=== PATIENT | female | born 1985 | race Caucasian/White ===

== ENCOUNTER → 2018-02-08 14:12 | Outpatient (CLI) | payer MEDICAID, SELFPAY ==
[2018-02-15 12:15] LABS: HPV Reflexed? NOT INDICATED
== END ==
PROVIDERS: Visit Provider Obstetrics & Gynecology
DX: Z12.4 Encounter for screening for malignant neoplasm of cervix (principal)
CPT/HCPCS: 88175; G0145

== ENCOUNTER → 2018-10-17 | Outpatient (CLI) | payer MEDICAID, SELFPAY ==
[2014-10-23 11:01] VITALS: BMI 34.7
[2018-10-17 20:29] LABS: Chlamydia Trachomatis by PCR Negative (Negative); Neisserai gonorrhoeae by PCR Negative (Negative); Probe Check PASS; Sample Adequacy Control PASS; Specimen Processing Control PASS
== END | disposition home or self-care (01) ==
LOC: LABSPEC 17:04
PROVIDERS: Visit Provider Obstetrics & Gynecology
DX: Z12.4 Encounter for screening for malignant neoplasm of cervix (principal); Z11.3 Encounter for screening for infections with a predominantly sexual mode of transmission
CPT/HCPCS: 87491; 87591

== ENCOUNTER → 2018-11-02 | Outpatient (CLI) | payer MEDICAID, SELFPAY ==
[2014-10-23 11:01] VITALS: BMI 34.7
[2018-11-02 15:53] LABS: Color, Urine Yellow (Yellow); Glucose, Dipstick Normal (Normal); Ketone-Dipstick Negative (Negative); Leukocyte Esterase-Dipstick Negative /ul (Negative); Nitrite-Dipstick Negative (Negative); Occult Blood-Urine 25 /ul (Negative); Protein-Dipstick Negative (Negative); Specific Gravity, Urine 1.015 (1.002-1.030); Urine Bilirubin Dipstick Negative (Negative); Urine Clarity Clear (Clear); Urine Urobilinogen Normal (Normal); Urine pH 6.5 (5.0 - 8.0)
[2018-11-02 15:59] LABS: Amphetamine Urine VISTA NEGATIVE (<1000 ng/mL); Barbiturate Urine VISTA NEGATIVE (< 200 ng/mL); Benzodiazepine Urine VISTA NEGATIVE (< 200 ng/mL); Cocaine Urine VISTA NEGATIVE (< 300 ng/mL); Ecstacy Urine VISTA NEGATIVE (< 500 ng/mL); Methadone Urine VISTA NEGATIVE (< 300 ng/mL); PCP Urine VISTA NEGATIVE (< 25 ng/mL); THC Urine VISTA POSITIVE (< 50 ng/mL); Vista UDS pH Range 6
[2018-11-02 17:16] LABS: Absolute Lymphocyte Count 3.36 X10^3/ul (0.83-4.51); Absolute Neutrophil Count 6.8 X10^3/uL (2.0-7.7); Basophil# 0.03 X10^3/uL; Basophil% 0.3 % (0-1); Eosinophil# 0.08 X10^3/uL; Eosinophils% 0.7 % (0-5); Hematocrit 36.1 % (37-47); Hemoglobin 11.7 g/dl (12.0-15.0); Lymphocyte # 3.36 X10^3/ul (4.0); Mean Corp Hgb Conc 32.4 g/gl (32-36); Mean Corpuscular Hgb 28.7 pg (27.0-32.0); Mean Corpuscular Volume 88.7 fL (81-99); Mean Platelet Vol. 8.8 fl (6.2-12.0); Monocyte# 0.57 X10^3/uL; Monocyte% 5.3 % (0-10); Neutrophil # 6.76 X10^3/uL (2.7-7.7); Neutrophil % 62.4 % (47-70); Platelet Count 420 K/mm3 (150-450); RBC Distribution Width CV 13.1 % (11.6-14.6); RBC Distribution Width SD 41.9 fl (35.1-43.9); Red Blood Count 4.07 M/mm3 (4.2-5.4); White Blood Count 10.8 K/mm3 (4.4-11.0)
[2018-11-02 17:19] LABS: POSITIVE COUNT NO; POSITIVE DIFFERENTIAL NO; POSITIVE MORPHOLOGY NO
[2018-11-02 17:31] LABS: Thyroid Stim Hormone (TSH) 0.93 uIU/mL (0.358-3.74)
[2018-11-02 18:11] LABS: HIV - WCH Non-Reactive (Nonreactive); Rubella IgG 42.5 IU/mL
[2018-11-03 01:45] LABS: Prenatal RPR NONREACTIVE (NONREACTIVE)
[2018-11-06 11:36] LABS: HEPATITIS B SURFACE AG Negative (Negative); Hep C Antibodies <0.1 s/co ratio (0.0-0.9)
== END | disposition home or self-care (01) ==
LOC: WOBLAB 14:23
PROVIDERS: Visit Provider Obstetrics & Gynecology
DX: Z34.81 Encounter for supervision of other normal pregnancy, first trimester (principal)
CPT/HCPCS: 36415; 80307; 81002; 84443; 85025; 86703; 86762; 86803; 87340

== ENCOUNTER → 2019-03-05 15:54 | Outpatient (CLI) | payer MEDICAID, SELFPAY ==
[2014-10-23 11:01] VITALS: BMI 34.7
[2019-03-05 17:33] LABS: Hematocrit 31.6 % (37-47); Hemoglobin 10.3 g/dL (12.0-15.0); Mean Corp Hgb Conc 32.6 g/dL (32-36); Mean Corpuscular Hgb 28.8 pg (27.0-32.0); Mean Corpuscular Volume 88.3 fL (81-99); Mean Platelet Vol. 8.9 fl (6.2-12.0); Platelet Count 496 K/mm3 (150-450); RBC Distribution Width SD 42.2 fl (35.1-43.9); Red Blood Count 3.58 M/mm3 (4.2-5.4); White Blood Count 13.9 K/mm3 (4.4-11.0)
[2019-03-05 17:41] LABS: Glucose Challenge Gest 1H 50g 102 mg/dL (70-140)
[2019-03-05 17:51] LABS: Amphetamine Urine VISTA NEGATIVE (<1000 ng/mL); Barbiturate Urine VISTA NEGATIVE (< 200 ng/mL); Benzodiazepine Urine VISTA NEGATIVE (< 200 ng/mL); Cocaine Urine VISTA NEGATIVE (< 300 ng/mL); Ecstacy Urine VISTA NEGATIVE (< 500 ng/mL); Methadone Urine VISTA NEGATIVE (< 300 ng/mL); PCP Urine VISTA NEGATIVE (< 25 ng/mL); THC Urine VISTA POSITIVE (< 50 ng/mL); Vista UDS pH Range 6
== END ==
PROVIDERS: Visit Provider Obstetrics & Gynecology
DX: Z34.83 Encounter for supervision of other normal pregnancy, third trimester (principal)
CPT/HCPCS: 36415; 80307; 82950; 85027; 86850

== ENCOUNTER → 2019-04-30 15:36 | Outpatient (CLI) | payer MEDICAID, SELFPAY ==
[2014-10-23 11:01] VITALS: BMI 34.7
== END ==
PROVIDERS: Visit Provider Obstetrics & Gynecology
DX: Z36.85 Encounter for antenatal screening for Streptococcus B (principal)
CPT/HCPCS: 87081

== ENCOUNTER 2019-05-14 20:43 | Outpatient (CLI) | payer MEDICAID, SELFPAY ==
[2014-10-23 11:01] VITALS: BMI 34.7
[2019-05-14 21:21] VITALS: BMI 39.1
--- NOTE | 2019-05-15 21:53 | OB.TRI.PN ---
Progress Notes Date of Service: 05/14/19 Progress Note: Reports to triage with lower abdominal pain which wraps around her back with pelvic pressure. Desires to be checked for labor. On monitor for >80 minutes with no contractions seen. FHR baseline 140, + accels, - decels, moderate variability, Category 1. Pain went away after being in triage. Educated on remaining hydrated, Tylenol as needed, and maternity belt for support. To keep appointment in the office tomorrow. To call with increased vaginal pressure, regular UC, decreased FM, bleeding, or ROM.
== END 2019-05-14 22:25 | disposition home or self-care (01) ==
LOC: WPOUT 21:14 → WP 21:14
PROVIDERS: Referring Provider Obstetrics & Gynecology; Visit Provider Obstetrics & Gynecology
DX: O26.899 Other specified pregnancy related conditions, unspecified trimester (principal); R10.30 Lower abdominal pain, unspecified; M54.9 Dorsalgia, unspecified; Z3A.00 Weeks of gestation of pregnancy not specified
CPT/HCPCS: 59025; 59050; 99218; G0378

== ENCOUNTER 2019-05-18 06:45 | Inpatient (IN) | payer MEDICAID, SELFPAY ==
[2014-10-23 11:01] VITALS: BMI 34.7
[2019-05-18 07:23] VITALS: BMI 39.0
--- NOTE | 2019-05-18 07:32 | HP.PCM_ITS ---
History and Physical Date of Admission: 05/18/19 OB HISTORY AND PHYSICAL EXAMINATION History of this : 33 yo female Ab0 with EDC 05/25/2019 by Ultrasound, presents to Labor and Delivery for elective induction of labor at 39 wks. care remarkable for - A NEG, Rubella Immune. GBS negative. 1.) Smokes 5 cigs per day, ATQ 2.) Active marijuana use 3.) FOB had loss of one child at 15 month d/t Grade 4 brain bleed 4.) FOB has a 1st cousin with Muscular Dystrophy - distant and not likely to impact this 5.) A Negative 6.) Rapid second stage with first delivery : SURGICAL HISTORY: 1. 10/23/2014 SHUKRI Aguilera M.D. MENSTRUAL HISTORY: LMP Known?- Approximate-Month KnownAmount/Duration - 4-5, Regularity - Regular, Frequency - monthly days, LMP - 08/18/18, Age Onset Menarche - 15 PAST PREGNANCIES: Total Pregnancies - 3; Full Term Pregnancies - 2; Premature - 0; Abortions, Induced - 0; Abortions, Spontaneous - 0; Ectopics - 0; Multiple Births - 0; Living Children - 2 FAMILY HISTORY: Maternal Grandparent - Type 2 Diabetes; SOCIAL HISTORY: Alcohol Use - denies drinking Smoking - Quit smoking Diet - moderate, balanced diet Lifestyle - moderate stress lifestyle and single Exercise - regular Seat Belt Use - most of the time Employer - [employer] 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 Illicit Drug Use - denies use of street drugs Sexual Activity - single sexual partner Residence - owns a home Place of - [place], [place] Hours Worked - 40 Spouse-Sig Other Name - ESCOBAR- Jaswinder Jurado Spouse-Sig Other Occupation - [employer] Spouse-Sig Other Phone No - [phone] Children Name(s) - Abhijitellie (EB), Deon (EB) Control - Allergies: Shellfish Derived Medications: During - vits no.130-ferrous fum 27 mg iron-folic acid 800 mcg tablet; Pepcid 20 mg tablet; Zofran 4 mg tablet; Claritin-D 12 Hour 5 mg-120 mg tablet,extended release Review of Systems: Non-contributory PHYSICAL EXAMINATION General Appearance: 33 yo female in no acute distress Vital Signs: AF, VSS Lungs: regular rate and rhythm. Breasts: deferred Abdomen: gravid Cervix: cephalic Size: AGA Movement: present Heart: 130 with accels. Irregular UCs. Impression /Plan: Intrauterine . 39 wk elective induction of labor. Admit. Plan amniotomy, Pitocin per protocol.
[2019-05-18] MEDS: Lactated Ringers 1,000 ML 50 ML IV (07:35)
[2019-05-18 07:50] LABS: Absolute Lymphocyte Count 3.24 X10^3/uL (0.83-4.51); Absolute Neutrophil Count 6.5 X10^3/uL (2.0-7.7); Basophil# 0.03 X10^3/uL; Basophil% 0.3 % (0-1); Eosinophil# 0.13 X10^3/uL; Eosinophils% 1.2 % (0-5); Hematocrit 30.5 % (37-47); Hemoglobin 9.7 g/dL (12.0-15.0); Lymphocyte # 3.24 X10^3/ul (4.0); Lymphocyte % 30.8 % (19-41); Mean Corp Hgb Conc 31.8 g/dL (32-36); Mean Corpuscular Hgb 27.2 pg (27.0-32.0); Mean Corpuscular Volume 85.7 fL (81-99); Mean Platelet Vol. 8.9 fl (6.2-12.0); Monocyte# 0.55 X10^3/uL; Monocyte% 5.2 % (0-10); NRBC Flagged by Analyzer 0 % (0-5); Neutrophil % 61.8 % (47-70); Platelet Count 372 K/mm3 (150-450); RBC Distribution Width CV 14.7 % (11.6-14.6); RBC Distribution Width SD 45.9 fl (35.1-43.9); Red Blood Count 3.56 M/mm3 (4.2-5.4); White Blood Count 10.5 K/mm3 (4.4-11.0)
[2019-05-18] MEDS: Oxytocin 30 units/NS 500 ml 30 UNITS/500 ML IV.SOLN IV (07:52)
[2019-05-18] MEDS: Lactated Ringers 500 ML 999 ML IV (10:36)
[2019-05-18] MEDS: fentaNYL-bupivacaine (epidural) 100 ML BAG EPIDURAL (11:37)
--- NOTE | 2019-05-18 12:27 | PCM.PN.BLA ---
Progress Note LABOR PROGRESS NOTE 39 wk induction More comfortable, just got epidural. AVSS Pitocin at 10 mIU/min EFM 120-130s avg variability Accels UCs noted CX: tight 3/80/-2 vtx well applied tyo cervix. Anterior, mod firm AROM: clear fluid. IUPC placed A/P 39 wk elective induction of labor. Pitocin. Now AROM Continue Pitocin to adequate mVUs by IUPC. Epidural in place. feeling more on L side. Position changes to maximize epidural coverage and to facilitate rotation, descent.
[2019-05-18 12:39] LABS: Amphetamine Urine VISTA NEGATIVE (<1000 ng/mL); Barbiturate Urine VISTA NEGATIVE (< 200 ng/mL); Benzodiazepine Urine VISTA NEGATIVE (< 200 ng/mL); Cocaine Urine VISTA NEGATIVE (< 300 ng/mL); Ecstacy Urine VISTA NEGATIVE (< 500 ng/mL); Methadone Urine VISTA NEGATIVE (< 300 ng/mL); PCP Urine VISTA NEGATIVE (< 25 ng/mL); THC Urine VISTA POSITIVE (< 50 ng/mL); Vista UDS pH Range 6
[2019-05-18] MEDS: Lactated Ringers 1,000 ML 200 ML IV (15:08)
[2019-05-18] MEDS: Oxytocin 30 units/NS 500 ml 30 UNITS/500 ML IV.SOLN 334 UNITS IV (16:55)
--- NOTE | 2019-05-18 16:59 | PCM.OPRPT ---
Vaginal Delivery Maternal Presentation: Elective Induction 39 wk induction of labor Method of Induction: Pitocin, Amniotomy Amniotic Membrane Rupture Type: Artificial Amniotic Fluid Description: Clear Final CYNTHIA: 05/25/19 Gestational age: 39 Weeks and 0 Days Date of Procedure: 05/18/19 Pre-Operative Diagnosis: 39 wk induction Post-Operative Diagnosis: same Surgery/ Procedure Performed: Spontaneous Vaginal Delivery Type of Anesthesia: Epidural Description of Procedure: Vacuum assisted vaginal delivery , single push with pull into green zone on Kiwi vacuum extractor at +2 station, due to deep FHR decelerations to 70-80s with pushing., Castro and epidural catheters in place. Comfortable with epidural and bladder emptied. Resulted in vaginal delivery of a man viable female over intact perineum. Head delivered JAIMEE. OP and nares bulb suctioned on perineum. No nuchal cord. Shoulders delivered easily. Cord loosely around body times one. to maternal abdomen. Cord clamped times two and cut. routine cord gases, and cord blood for typing collected. Ap 8/9 PP exam no lacerations. Placenta delivered by spont expulsion, expression. 3V normal appearing and intact with trailing membranes. EBL 300 cc Pt and tolerated delivery well. to recovery, stable condition. Ray Gertrudis and needle counts correct times two. Presentation: Vertex, JAIMEE Placental Delivery Description: Spontaneous, Expressed Placenta Disposition: [facility] Cord Vessel Description: 3 Vessels Cord Gases drawn per routine: ABG, VBG Cord Entanglement: None - body cord times one. Estimated Blood Loss: 300 A gender: Female (1 minute): 8 (5 minute): 9 Episiotomy Description: None Laceration: None Medications given after delivery: IV Pitocin Complications: None
--- NOTE | 2019-05-18 17:06 | DCINST_ITS ---
Discharge Diet: No Restrictions Discharge Activity: May Shower, May Take a Tub Bath May resume sexual activity in: 4-6 weeks Additional Activity Instructions:: Nothing in the vagina for 4-6 weeks. You may return to work/school in 6 weeks. Additional Instructions: If you experience any of the following, contact your healthcare provider. * Bleeding that soaks a pad every hour for 2 hours * Fever 100.4 or higher * Unrelieved abdominal pain * Problems urinating (including inability to urinate or burning while urinating). * Visual changes * Severe headache * Flu-like symptoms * Pain or redness in one of both of your breasts * Pain, warmth, tenderness or swelling in your legs, especially the calf area * Frequent nausea and vomiting * Symptoms of depression or anxiety If you experience any of the following, call 911 or go to the nearest Emergency Room. * Chest pain * Problems breathing * Seizure activity * Partial or complete paralysis of a body part, slurred speech, weakness or drooping of the face, or a sudden inability to walk or hold your balance Allergies/Adverse Reactions: Allergies shellfish derived Adverse Reaction (Verified 05/14/19 21:28) Itching Medications to take at Discharge Docosahexanoic Acid [ Dha] 200 mg PO DAILY 05/14/19 Ondansetron HCl [Zofran] 4 mg PO DAILY 05/14/19 Please Follow Up With: Kay Rodríguez, [facility] - [phone] When: Call to make an appointment with your doctor in 6 weeks. Primary Care Physician: Care Physician,No Primary [Primary Care Provider] - Test Results: Test results from this visit will be discussed in further detail at your follow- up appointment, if applicable. Proposed Discharge Date: 05/20/19
--- NOTE | 2019-05-18 17:06 | PCM.DCVAG ---
Discharge Diet: No Restrictions Discharge Activity: May Shower, May Take a Tub Bath May resume sexual activity in: 4-6 weeks Additional Activity Instructions:: Nothing in the vagina for 4-6 weeks. You may return to work/school in 6 weeks. Additional Instructions: If you experience any of the following, contact your healthcare provider. Bleeding that soaks a pad every hour for 2 hours Fever 100.4 or higher Unrelieved abdominal pain Problems urinating (including inability to urinate or burning while urinating). Visual changes Severe headache Flu-like symptoms Pain or redness in one of both of your breasts Pain, warmth, tenderness or swelling in your legs, especially the calf area Frequent nausea and vomiting Symptoms of depression or anxiety If you experience any of the following, call 911 or go to the nearest Emergency Room. Chest pain Problems breathing Seizure activity Partial or complete paralysis of a body part, slurred speech, weakness or drooping of the face, or a sudden inability to walk or hold your balance Allergies/Adverse Reactions: Allergies shellfish derived Adverse Reaction (Verified 05/14/19 21:28) Itching Medications to take at Discharge Docosahexanoic Acid [ Dha] 200 mg PO DAILY 05/14/19 Ondansetron HCl [Zofran] 4 mg PO DAILY 05/14/19 Please Follow Up With: Kay Rodríguez, [facility] - [phone] When: Call to make an appointment with your doctor in 6 weeks. Primary Care Physician: Care Physician,No Primary [Primary Care Provider] - Test Results: Test results from this visit will be discussed in further detail at your follow-up appointment, if applicable. Proposed Discharge Date: 05/20/19
[2019-05-18] MEDS: 0.9% Saline Lock 10 ML Syringe IV (19:40)
[2019-05-18 20:23] VITALS: BP 97/52; PULSE 70; RESP 18; TEMP 36.8
[2019-05-18 23:55] VITALS: BP 103/57; PULSE 71; RESP 18; TEMP 37.3
[2019-05-19 04:08] VITALS: BP 97/54; PULSE 66; RESP 16; TEMP 36.8
[2019-05-19] MEDS: Ibuprofen 600 MG Tablet PO ×2 (04:14→13:32)
[2019-05-19 08:30] VITALS: BP 125/67; PULSE 68; RESP 16; TEMP 36.6
[2019-05-19] MEDS: Senna/Docusate Sodium 1 Tablet PO (08:33)
--- NOTE | 2019-05-19 10:40 | PCM.PN.OB ---
Subjective: PPD#1 induction 39 wks Doing well. S.O. would like to go home today. Amanda is wanting to attempt nursing, nipples sore and plans consultation. Willing to nurse unless painful, then will bottle feed. - Physical Exam Vitals/I&O's: Vital Signs Temp Pulse Resp BP 97.8 F 68 16 125/67 H 05/19/19 08:30 05/19/19 08:30 05/19/19 08:30 05/19/19 08:30 Oxygen Delivery Method Room Air Weight: 103.3 kg Body Mass Index (BMI) 39.0 Intake and Output for Last 24 Hours 05/17/19 05/18/19 05/19/19 23:59 23:59 23:59 Intake Total 2392.33 / 2392.33 Output Total 500 / 500 Balance 1892.33 / 1892.33 General: Alert, Oriented x3, Cooperative, No apparent distress HEENT: Atraumatic, EOMI Neck: Supple Abdomen: Soft - Fundus Firm NT inferior to umbilicus Psych/Mental Status: Normal Affect Laboratory Results 05/18/19 12:00: Urine Opiates Screen NEGATIVE, Urine Methadone Screen NEGATIVE, Ur Barbiturates Screen NEGATIVE, Ur Phencyclidine Scrn NEGATIVE, Ur Amphetamines Screen NEGATIVE, U Methamphetamin-MDMA NEGATIVE, U Benzodiazepines Scrn NEGATIVE, Urine Cocaine Screen NEGATIVE, U Cannabinoids Screen POSITIVE H, Ur Drug Screen Comment 05/18/19 21:28: Screen NEGATIVE, Baby's Blood Type O POSITIVE, Baby's JOSE JUAN NEGATIVE Current Medications Acetaminophen (Tylenol) 1,000 mg PO Q8H PRN PRN PRN Reason: Pain Score 1-3/10 Bisacodyl (Dulcolax) 10 mg RECTAL UD PRN PRN Reason: If no BM Dibucaine (Dibucaine) 1 applic TOPICAL TID PRN PRN; Protocol PRN Reason: Discomfort Hydrocortisone (Hytone) 1 applic TOPICAL TID PRN PRN; Protocol PRN Reason: Discomfort Ibuprofen (Motrin) 600 mg PO Q6H PRN PRN PRN Reason: Pain Score 1-3/10 Last Admin: 05/19/19 04:14 Dose: 600 mg Documented by: Methylergonovine Maleate (Methergine) 0.2 mg IM X1 PRN PRN Reason: Excess bleeding/uterine atony Ondansetron HCl (Zofran) 4 mg IV Q4H PRN PRN PRN Reason: Nausea Senna/Docusate Sodium (Senokot-S, Eileen-Colace) 1 - 2 tablet PO DAILY PRN PRN PRN Reason: Constipation Last Admin: 05/19/19 08:33 Dose: 2 tablet Documented by: Simethicone (Mylicon) 80 mg PO PCHS PRN PRN Reason: Indigestion/Stomach pain Sodium Chloride () 5 - 15 ml IV UD PRN PRN Reason: SALINE FLUSH Last Admin: 05/18/19 19:40 Dose: 10 ml Documented by: Zolpidem Tartrate (Ambien (Generic)) 5 mg PO QHS PRN PRN PRN Reason: Insomnia Medical Necessity - Tobacco Use Smoking Status: Current every day smoker Assessment/Plan PPD#1 Doing well Assist prn with nursing. Possible dischg later today. order entered and will decide later. If home today, RTO in 6 wk for pp check up CONSIDERING IUD at pp check, and advised no intercourse until after IUD placed.
[2019-05-19 12:30] VITALS: BP 131/70; PULSE 76; RESP 18; TEMP 36.6
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
[2019-05-19 18:20] VITALS: BP 123/77; PULSE 61; RESP 16; TEMP 36.8
[2019-05-19 19:47] VITALS: BP 123/77; PULSE 60; RESP 18; TEMP 36.8
== END 2019-05-19 20:40 | disposition home or self-care (01) | DRG 560 ==
PROVIDERS: Admitting Provider Obstetrics & Gynecology; Referring Provider Obstetrics & Gynecology; Visit Provider Obstetrics & Gynecology
DX: O76 Abnormality in fetal heart rate and rhythm complicating labor and delivery (principal); F17.210 Nicotine dependence, cigarettes, uncomplicated; O99.334 Smoking (tobacco) complicating childbirth; F12.90 Cannabis use, unspecified, uncomplicated; O99.324 Drug use complicating childbirth; Z37.0 Single live birth; Z3A.39 39 weeks gestation of pregnancy; O69.82X0 Labor and delivery complicated by other cord entanglement, without compression, not applicable or unspecified
CPT/HCPCS: 59050; 80307; 85025; 85461; 86850; 86900; 86901; 90384; 99218; J7120; A4216; G0378; J2790

== ENCOUNTER → 2019-12-11 | Outpatient (CLI) | payer MEDICAID, SELFPAY | END | disposition home or self-care (01) | LOC: LABSPEC 12-12 07:39 | PROVIDERS: Visit Provider Family Medicine Hospice and Palliative Medicine | DX: Z11.59 Encounter for screening for other viral diseases (principal) | CPT/HCPCS: 87635; G2023; U0003 ==

== ENCOUNTER 2021-06-09 13:40 | Outpatient (CLI) | payer MEDICAID, SELFPAY ==
[2021-06-09 15:35] LABS: Basophil# 0.05 X10^3/uL; Basophil% 0.5 % (0-1); Eosinophil# 0.12 X10^3/uL; Eosinophils% 1.2 % (0-5); Hematocrit 34.5 % (37-47); Hemoglobin 11.4 g/dL (12.0-15.0); Lymphocyte % 33.6 % (19-41); Mean Corpuscular Hgb 28.6 pg (27.0-32.0); Mean Corpuscular Volume 86.7 fL (81-99); Mean Platelet Vol. 8.9 fl (6.2-12.0); Monocyte# 0.52 X10^3/uL; Monocyte% 5.1 % (0-10); NRBC Flagged by Analyzer 0 % (0-5); Neutrophil # 5.98 X10^3/uL (2.7-7.7); Neutrophil % 59.2 % (47-70); Platelet Count 418 K/mm3 (150-450); RBC Distribution Width CV 13.8 % (11.6-14.6); RBC Distribution Width SD 43.6 fl (35.1-43.9); Red Blood Count 3.98 M/mm3 (4.2-5.4); White Blood Count 10.1 K/mm3 (4.4-11.0)
[2021-06-09 16:21] LABS: Amphetamine Urine VISTA NEGATIVE (<1000 ng/mL); Barbiturate Urine VISTA NEGATIVE (< 200 ng/mL); Benzodiazepine Urine VISTA NEGATIVE (< 200 ng/mL); Cocaine Urine VISTA NEGATIVE (< 300 ng/mL); Ecstacy Urine VISTA NEGATIVE (< 500 ng/mL); Methadone Urine VISTA NEGATIVE (< 300 ng/mL); PCP Urine VISTA NEGATIVE (< 25 ng/mL); THC Urine VISTA POSITIVE (< 50 ng/mL); Vista UDS pH Range 7
[2021-06-10 09:21] LABS: HIV - WCH Non-Reactive (Nonreactive); Hepatitis B Surface Antigen Non-Reactive (Nonreactive); Hepatitis C Antibody Non-Reactive (Nonreactive); Rubella IgG Reactive (Nonreactive); Syphilis Antibodies Non-reactive
[2021-06-11 22:06] LABS: Chlamydia By Nucleic Acid AMP Negative (Negative)
[2021-06-12 15:30] LABS: Gonococcus By Nucleic Acid AMP Negative (Negative)
[2021-06-15 18:39] LABS: HPV APTIMA, High Risk Positive (Negative)
== END 2021-06-09 23:59 | disposition short-term general hospital (02) ==
LOC: WOBLAB 13:42
PROVIDERS: Visit Provider Student in an Organized Health Care Education/Training Program
DX: Z34.81 Encounter for supervision of other normal pregnancy, first trimester (principal); Z12.4 Encounter for screening for malignant neoplasm of cervix; Z11.3 Encounter for screening for infections with a predominantly sexual mode of transmission
CPT/HCPCS: 36415; 80307; 85025; 86703; 86762; 86780; 86803; 87086; 87088; 87340; 87491; 87591; 87624; 88175; G0145

== ENCOUNTER → 2021-10-13 | Outpatient (CLI) | payer MEDICAID, SELFPAY ==
[2021-10-13 09:52] LABS: Hematocrit 33.6 % (37-47); Mean Corp Hgb Conc 32.7 g/dL (32-36); Mean Corpuscular Hgb 28.9 pg (27.0-32.0); Mean Corpuscular Volume 88.4 fL (81-99); Platelet Count 495 K/mm3 (150-450); RBC Distribution Width CV 13.4 % (11.6-14.6); RBC Distribution Width SD 43.5 fl (35.1-43.9); White Blood Count 9.4 K/mm3 (4.4-11.0)
[2021-10-13 10:47] LABS: Glucose Challenge Gest 1H 50g 151 mg/dL (70-140)
== END | disposition home or self-care (01) ==
PROVIDERS: Visit Provider Student in an Organized Health Care Education/Training Program
DX: Z34.83 Encounter for supervision of other normal pregnancy, third trimester (principal)
CPT/HCPCS: 36415; 82950; 85027; 86850

== ENCOUNTER → 2021-10-26 | Outpatient (CLI) | payer MEDICAID, SELFPAY ==
[2021-10-26 10:37] LABS: Glucose GTT-Gestation. Fasting 97 mg/dL (<105)
[2021-10-26 10:53] LABS: Glucose GTT-Gestational 1 Hr 160 mg/dL (<190)
[2021-10-26 12:56] LABS: Glucose GTT-Gestational 2 Hr 129 mg/dL (<165)
[2021-10-26 13:22] LABS: Glucose GTT-Gestational 3 Hr 95 L (<145)
== END | disposition home or self-care (01) ==
LOC: WOBLAB 08:55
PROVIDERS: Visit Provider Student in an Organized Health Care Education/Training Program
DX: O24.912 Unspecified diabetes mellitus in pregnancy, second trimester (principal); Z3A.00 Weeks of gestation of pregnancy not specified
CPT/HCPCS: 36415; 82951; 82952

== ENCOUNTER → 2021-11-26 | Outpatient (CLI) | payer MEDICAID, SELFPAY | END | disposition home or self-care (01) | LOC: LABSPEC 11:25 | PROVIDERS: Visit Provider Student in an Organized Health Care Education/Training Program | DX: Z36.85 Encounter for antenatal screening for Streptococcus B (principal) | CPT/HCPCS: 87081 ==

== ENCOUNTER 2021-12-11 07:07 | Inpatient (IN) | payer MEDICAID, SELFPAY ==
[2021-12-11] VITALS (64 sets, daily range): BP systolic 79–127; BP diastolic 50–75; PULSE 47–75; TEMP 36.1–36.6; O2SAT 80–100; BMI 35.9
--- NOTE | 2021-12-11 07:51 | PCM.HP.BLA ---
History and Physical Date of Admission: 12/11/21 HPI: 36-year-old at 37/0 weeks, CYNTHIA 01/01/2022 by 10-week ultrasound, admitted for induction of labor for growth restriction. Denies regular contractions, vaginal bleeding, leaking of fluid. Reports movement. Denies headache, vision changes, chest pain or shortness of breath, nausea or vomiting, fevers or chills, diarrhea or constipation. complicated by: growth restriction EFW 2nd percentile measuring 1846 g, AC 6 percentile. Depression on Celexa, history of marijuana and tobacco use. 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 Anxiety/depression 2. Class I obesity Surgical history: 1. LEEP 2. [place] teeth extraction Allergies: Shellfish Social history: History of tobacco and marijuana use, denies alcohol use. Family history: 1. Diabetes mellitus Physical Exam: Vitals: BP 109/65, HR 65, Temp 98.2 ?F, respiratory rate 18 General: No acute distress HEENT: Normocephalic/atraumatic, PERRLA Cardiac: Regular rate and rhythm Lung: Clear to auscultation bilaterally Abdomen: Soft, nontender, obese, gravid Extremities: Minimal edema Neurologic: Cranial nerves II through XII grossly intact, no focal deficits Musculoskeletal: Muscle strength 5 out of 5 throughout all extremities Cervical exam: 1 cm/50/-3 per RN FHR: 125/mod colleen/+accel/no decel [place]: quiet labs: GBS negative 11/26 Failed 1 hour, 3-hour within normal limits Hepatitis C negative Hepatitis B- HIV negative Syphilis negative Rubella immune A neg CBC pending Assessment/Plan: 36-year-old at 37/0 weeks, CYNTHIA 01/01/2022 by 10-week ultrasound, admitted for induction of labor for growth restriction. complicated by: growth restriction EFW 2nd percentile measuring 1846 g, AC 6 percentile. Depression on Celexa, history of marijuana and tobacco use. -Admit to labor and delivery -Routine orders - growth restriction. -Depression, continue celexa -History of tobacco, marijuana use -Induction of labor with cytotec -GBS negative
[2021-12-11 08:01] LABS: Absolute Lymphocyte Count 3.33 X10^3/uL (0.83-4.51); Absolute Neutrophil Count 7.4 X10^3/uL (2.0-7.7); Basophil# 0.05 X10^3/uL; Basophil% 0.4 % (0-1); Eosinophil# 0.13 X10^3/uL; Eosinophils% 1.1 % (0-5); Hematocrit 31.4 % (37-47); Lymphocyte # 3.33 X10^3/ul (0.83-4.51); Lymphocyte % 28.7 % (19-41); Mean Corp Hgb Conc 31.8 g/dL (32-36); Mean Corpuscular Hgb 28.1 pg (27.0-32.0); Mean Corpuscular Volume 88.2 fL (81-99); Mean Platelet Vol. 8.9 fl (6.2-12.0); Monocyte# 0.66 X10^3/uL; Monocyte% 5.7 % (0-10); NRBC Flagged by Analyzer 0 % (0-5); Neutrophil # 7.36 X10^3/uL (2.7-7.7); Neutrophil % 63.5 % (47-70); Platelet Count 462 K/mm3 (150-450); RBC Distribution Width CV 13.5 % (11.6-14.6); Red Blood Count 3.56 M/mm3 (4.2-5.4); White Blood Count 11.6 K/mm3 (4.4-11.0)
[2021-12-11] MEDS: miSOPROStol 25 MCG TABLET VAGINAL (08:16)
[2021-12-11] MEDS: Lactated Ringers 1,000 ML 50 ML IV (08:16)
[2021-12-11 10:15] LABS: Amphetamine Urine VISTA NEGATIVE (<1000 ng/mL); Barbiturate Urine VISTA NEGATIVE (< 200 ng/mL); Benzodiazepine Urine VISTA NEGATIVE (< 200 ng/mL); Cocaine Urine VISTA NEGATIVE (< 300 ng/mL); Ecstacy Urine VISTA NEGATIVE (< 500 ng/mL); Methadone Urine VISTA NEGATIVE (< 300 ng/mL); PCP Urine VISTA NEGATIVE (< 25 ng/mL); THC Urine VISTA POSITIVE (< 50 ng/mL); Vista UDS pH Range 6
--- NOTE | 2021-12-11 12:32 | PCM.PN.OB ---
Subjective Subjective Patient seen and examined. Feeling mild contractions. Comfortable otherwise. Objective Data Objective Data Vital Signs: Vital Signs Temp Pulse BP Pulse Ox 97.3 F L 68 109/65 98 12/11/21 08:58 12/11/21 07:51 12/11/21 07:51 12/11/21 08:58 Weight: 94.801 kg Body Mass Index (BMI) 35.9 Lab / Micro Data Result Diagrams: 12/11/21 07:35 Labs: Laboratory Results - last 24 hr 12/11/21 07:35: WBC 11.6 H, RBC 3.56 L, Hgb 10.0 L, Hct 31.4 L, MCV 88.2, MCH 28.1, MCHC 31.8 L, RDW Std Deviation 44.0 H, RDW Coeff of Nargis 13.5, Plt Count 462 H, MPV 8.9, Immature Gran % (Auto) 0.600, Neut % (Auto) 63.5, Lymph % (Auto) 28.7, [place] % (Auto) 5.7, Eos % (Auto) 1.1, Baso % (Auto) 0.4, Absolute Neuts (auto) 7.4, Absolute Lymphs (auto) 3.33, Nucleated RBC % 0 12/11/21 07:35: Blood Type A NEGATIVE, Antibody Screen NEGATIVE 12/11/21 09:00: Urine Opiates Screen NEGATIVE, Urine Methadone Screen NEGATIVE, Ur Barbiturates Screen NEGATIVE, Ur Phencyclidine Scrn NEGATIVE, Ur Amphetamines Screen NEGATIVE, MDMA (Ecstasy) Screen NEGATIVE, U Benzodiazepines Scrn NEGATIVE, Urine Cocaine Screen NEGATIVE, U Cannabinoids Screen POSITIVE H, Ur Drug Screen Comment Micro: Microbiology 12/11/21 08:00 Nasal Secretion SARS-CoV-2 Antigen (Rapid) - Final Physical Exam Const alert, oriented x3 and no apparent distress Resp normal respiratory effort Narrative: Cervical exam: 3/60/-2, AROM clear fluid NST FHR Rate Baby A Baseline: 135 Variability:: Moderate Accelerations:: 15 x 15 Decelerations:: None FHR Category:: Category I Assessment & Plan (1) Active labor: PLAN: AROM. Start Pitocin. Category 1 tracing. Continue induction of labor. 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 (2) growth restriction:
[2021-12-11] MEDS: Oxytocin 30 units/NS 500 ml 30 UNITS/500 ML IV.SOLN IV (12:46)
--- NOTE | 2021-12-11 13:20 | NURSING ---
Pre epidural LR bolus administered from maintenance bag due to shortage of 500 cc bags.
[2021-12-11] MEDS: fentaNYL-bupivacaine (epidural) 100 ML BAG EPIDURAL ×2 (15:14→19:31)
[2021-12-11] MEDS: Ondansetron 4 MG/2 ML Vial IV (19:30)
[2021-12-11] MEDS: Lactated Ringers 1,000 ML 200 ML IV (19:37)
[2021-12-11] MEDS: Oxytocin 30 units/NS 500 ml 30 UNITS/500 ML IV.SOLN 334 UNITS IV (21:49)
--- NOTE | 2021-12-11 21:59 | EX.PCM.OBRPT ---
Maternal Data Information Final CYNTHIA: 01/01/22 Gestational age: 37/0 Vaginal Delivery Maternal Presentation Maternal Presentation: Medically Indicated Induction Operative Information Date of Procedure: 12/11/21 Pre-Operative Diagnosis: Bowers intrauterine , growth restriction Post-Operative Diagnosis: Bowers intrauterine , growth restriction Surgery / Procedure Performed: Spontaneous Vaginal Delivery Type of Anesthesia: Epidural Estimated Blood Loss: 300cc Findings Description of Procedure: Spontaneous vaginal delivery of viable infant female. No nuchal cord. Baby to mom. Cord clamped and cut. First degree laceration repaired in usual fashion, hemostatic. Bilateral labial abrasions hemostatic. Spontaneous delivery of placenta. Infant A Gender: Female (1 minute): 9 (5 minute): 9
[2021-12-12] VITALS (9 sets, daily range): BP systolic 92–99; BP diastolic 53–65; PULSE 55–67; RESP 16–18; TEMP 36.3–36.7; O2SAT 97–100
--- NOTE | 2021-12-12 09:08 | PCM.PN.OB ---
Subjective Subjective Feeling well. Lochia minimal. Feeding going well. Objective Data Objective Data Vital Signs: Vital Signs Temp Pulse Resp BP Pulse Ox O2 Del Method 97.3 F L 55 L 18 94/56 L 99 Room Air 12/12/21 04:57 12/12/21 04:57 12/12/21 04:57 12/12/21 04:57 12/12/21 00:10 12/12/21 04:57 Oxygen Delivery Method Room Air Weight: 94.801 kg Body Mass Index (BMI) 35.9 Intake & Output: Intake and Output for Last 24 Hours 12/10/21 12/11/21 12/12/21 23:59 23:59 23:59 Intake Total 3206.10 / 3206.10 277.33 / 277.33 Output Total 1100 / 1100 1000 / 1000 Balance 2106.10 / 2106.10 -722.67 / -722.67 Lab / Micro Data Result Diagrams: 12/11/21 07:35 Labs: Laboratory Results - last 24 hr 12/11/21 07:35: Blood Type A NEGATIVE, Antibody Screen NEGATIVE 12/11/21 09:00: Urine Opiates Screen NEGATIVE, Urine Methadone Screen NEGATIVE, Ur Barbiturates Screen NEGATIVE, Ur Phencyclidine Scrn NEGATIVE, Ur Amphetamines Screen NEGATIVE, MDMA (Ecstasy) Screen NEGATIVE, U Benzodiazepines Scrn NEGATIVE, Urine Cocaine Screen NEGATIVE, U Cannabinoids Screen POSITIVE H, Ur Drug Screen Comment 12/11/21 23:50: Screen NEGATIVE, Baby's Blood Type A POSITIVE, Baby's JOSE JUAN NEGATIVE Micro: Microbiology 12/11/21 08:00 Nasal Secretion SARS-CoV-2 Antigen (Rapid) - Final Physical Exam Const alert, oriented x3 and no apparent distress HEENT normocephalic Head and Scalp: atraumatic Neck full ROM Resp normal respiratory effort Cardio regular rate GI normal to inspection, nondistended, normoactive bowel sounds GI Narrative: Uterus 2 cm below umbilicus Back/Spine normal ROM Extremity normal to inspection Extremity Narrative: Minimal pedal edema Neuro no focal motor deficits and no sensory deficits noted Psych mental status grossly normal and affect normal Assessment & Plan (1) state: PLAN: day 1 status post . Feeling well, feeding well. Likely home tomorrow. (2) Vaginal delivery:
[2021-12-12] MEDS: Ibuprofen 600 MG Tablet PO ×2 (09:36→17:03)
--- NOTE | 2021-12-12 14:24 | NURSING ---
Report received from Madhavi OLIVA, taking over pt and care at this time.
--- NOTE | 2021-12-12 17:36 | CASEMGMT ---
Addendum entered by Chey Chapman 12/12/21 19:56: SW made on line referral to [facility] Chey Chapman TIMERS INSPECTOR AMAURI Original Note: MIGUEL Note Referral Source: MD Referral Reason: History of MH/ Positive THC mother SW met with RN who indicated she had no concerns regarding patient. SW met with patient and her visitor, who patient identified as her mother. Patient gave verbal consent to speak to this specification writer in the presence of her mother. Patient said my mom found out 5 minutes ago what this is about. Mom: Amanda Jurado OB: [place] OB Control: FOB had a vasectomy Baby: Leslie Jurado : 12/11/[birth year] Apgars: 02/12 Weight: 2305 grams Linen Tech: Dr. Ameena Butler Bottle Feeding MOB's other children: 2 year old daughter, 7 year old daughter and 8 year old daughter. Patient reports that her mother was watching the 2 year old until the fob went home and relieved her so she could come in and visit the nb. Housing: Patient and her reside in a house with their 4 children. Patient reports that the FOB has a 12 year old daughter who is there frequently and more than standard visitation. Transportation: Patient has access to transportation and can drive Supplies: Patient reports she has a carseat, bassinet, diapers, clothes and all nb supplies for the baby. Supports: Patient said that her is a support as well as her mom and sister in law. Patient said that her cousins, aunts and grandparents all reside within a 10 mile radius and are supportive. Patient said I defiantly have support. Education Level: Patient graduated from High School and the [employer]. 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 She plans to continue to be on a PRN basis until 06/2022. Agency Involvement: Patient has [employer] insurance. She plans to apply for ramos and food stamps as she will not be working. Patient was open to this specification writer making a referral to [facility] for her. Patient has no HMG, Counseling, CPS or legal involvement. 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 Patient said that the 12 year old comes to their house as much as she wants. ESCOBAR MH/AOD/DV history or concerns: Denied Maternal MH history: Patient said that she was previously on Celexa and then discontinued it as her OB said that it could make the nb have jitters so she weaned herself off of it. Patient said that she is going back on Celexa when she is discharged home. Patient said that the Celexa worked well for her and she was on it for 1 1/2 years. Patient said she had a little bit of both anxiety and depression but more depression when she was not on her medication. Patient's mother confirmed that patient was better on the medication and is supportive of patient being on medication. Patient denied any SI/HI. Patient reports no previous post depression with her older children but had post depression after the of her younger child, Haley. Patient said that she and her previously went to counseling for marital issues and the counselor recommended she go on Celexa so she went to MD who prescribed it for her. Patient was educated on PPD, Shaken Baby and safe sleep. Patient reports no alcohol use. Patient reported occasional marijuana use. Patient said that marijuana use is an occasional thing and she took it during her for nauseous and sleep issues. Patient said that the marijuana made her sleep and eat. Patient said that the marijuana was not medical but she bought it from a person who got it from the marijuana dispensary and had not been opened. Patient said that she thinks she will occasionally continue to use marijuana. Patient said that her children do not know about the drug use and she does it when the kids are asleep and I walk around the garden outside. Patient was educated that marijuana is illegal and that if patient chooses to continue to use marijuana then she needs to smoke outside with a sober and responsible individual watching the child and patient verbalized understanding. SW advised that patient has tested positive for THC however, the nb has not been tested yet. SW advised that if nb tests positive for THC then [facility] will need to be contacted. Patient verbalized understanding. SW provided patient with resources on Post anxiety and depression. Plan: Home at discharge. MIGUEL made WIC referral. SW will follow up on nb's tox and contact [facility] if nb tox is positive. Chey BAUGH
--- NOTE | 2021-12-12 17:49 | NURSING ---
Patient CPR certified.
[2021-12-13 01:58] VITALS: BP 100/59; PULSE 81; RESP 17; TEMP 36.6; O2SAT 100
[2021-12-13] MEDS: Ibuprofen 600 MG Tablet PO ×2 (02:11→12:28)
--- NOTE | 2021-12-13 08:29 | PCM.PN.OB ---
Subjective Subjective day 2. Lochia minimal. Feeling well. Objective Data Objective Data Vital Signs: Vital Signs Temp Pulse Resp BP Pulse Ox O2 Del Method 97.8 F 81 17 100/59 L 100 Room Air 12/13/21 01:58 12/13/21 01:58 12/13/21 01:58 12/13/21 01:58 12/13/21 01:58 12/13/21 01:58 Oxygen Delivery Method Room Air Weight: 94.801 kg Body Mass Index (BMI) 35.9 Intake & Output: Intake and Output for Last 24 Hours 12/11/21 12/12/21 12/13/21 23:59 23:59 23:59 Intake Total 3206.10 / 3206.10 277.33 / 277.33 Output Total 1100 / 1100 1600 / 1600 Balance 2106.10 / 2106.10 -1322.67 / -1322.67 Lab / Micro Data Attestation: I reviewed the patient's lab results. Result Diagrams: 12/11/21 07:35 Micro: Microbiology 12/11/21 08:00 Nasal Secretion SARS-CoV-2 Antigen (Rapid) - Final Physical Exam Const alert, oriented x3 and no apparent distress HEENT normocephalic Head and Scalp: atraumatic Neck full ROM Resp normal respiratory effort Cardio regular rate GI normal to inspection, nondistended, normoactive bowel sounds GI Narrative: Uterus 2 cm below umbilicus Back/Spine normal ROM Extremity normal to inspection Extremity Narrative: Minimal pedal edema Neuro no focal motor deficits and no sensory deficits noted Psych mental status grossly normal and affect normal Assessment & Plan (1) Vaginal delivery: PLAN: day 2 status post . Anemia of , iron supplement on home-going. Home today. (2) state:
--- NOTE | 2021-12-13 08:30 | DCINST_ITS ---
Discharge Instructions Diet Discharge Diet: No restrictions Activity Discharge Activity: Return to Normal Activity and May Shower May resume sexual activity in: 4-6 weeks Weight Bearing Status: Weight bearing as tolerated Lifting Restrictions: No greater than 25 pounds Dressing / Incision Call your doctor if you observe: Fever of 101 or Higher, Change in Color, Inability to urinate, Using more than 1 pad per hour, Shortness of breath, Dizziness, Swelling in the ankles, Chest pain and Calf discomfort Follow Up Care Please Follow Up With: Makenna Butler DO When: 2-week telehealth appointment and 6-week visit Test Results: Test results from this visit will be discussed in further detail at your follow- up appointment, if applicable. Discharge Plan Admission Admit Date/Time: 12/11/21 07:07 Primary Reason for Your Visit: Vaginal delivery Attending Provider: Makenna Butler Primary Care Provider: Care Physician,Kenia Primary Discharge Orders/Prescriptions Referrals / Follow Up: Care Physician,No Primary [Primary Care Provider] - Disposition Disposition (needs filled in before D/C Order can be placed): Home, Self Care
[2021-12-13 08:45] VITALS: BP 107/64; PULSE 62; RESP 14; TEMP 36.9; O2SAT 100
[2021-12-13 12:30] VITALS: BP 106/59; PULSE 60; RESP 16; TEMP 36.8
--- NOTE | 2022-02-03 12:36 | CM.ED ---
Letter from [facility]. Investigative case closed. Chey BAUGH
== END 2021-12-13 13:00 | disposition home or self-care (01) | DRG 560 ==
PROVIDERS: Admitting Provider Student in an Organized Health Care Education/Training Program; Visit Provider Student in an Organized Health Care Education/Training Program
DX: O99.344 Other mental disorders complicating childbirth (principal); Z37.0 Single live birth; O99.324 Drug use complicating childbirth; F12.90 Cannabis use, unspecified, uncomplicated; F17.210 Nicotine dependence, cigarettes, uncomplicated; F41.9 Anxiety disorder, unspecified; F32.A Depression, unspecified; Z03.74 Encounter for suspected problem with fetal growth ruled out; O99.214 Obesity complicating childbirth; O70.0 First degree perineal laceration during delivery; Z3A.37 37 weeks gestation of pregnancy; O90.81 Anemia of the puerperium; O99.334 Smoking (tobacco) complicating childbirth
CPT/HCPCS: 59025; 59050; 80307; 85025; 85461; 86850; 86900; 86901; 87426; 90384; 99218; 99406; J7120; G0378; J2405; J2790

== ENCOUNTER → 2022-08-09 | Outpatient (CLI) | payer MEDICAID, SELFPAY ==
[2022-08-18 15:55] LABS: HPV APTIMA, High Risk Negative (Negative)
== END | disposition home or self-care (01) ==
LOC: LABSPEC 11:25
PROVIDERS: Visit Provider Student in an Organized Health Care Education/Training Program
DX: Z12.4 Encounter for screening for malignant neoplasm of cervix (principal)
CPT/HCPCS: 87624; 88175; G0145